=== PATIENT | male | born 1945 | race Caucasian/White ===

== ENCOUNTER → 2018-11-05 | Outpatient (CLI) | payer OTHER, SELFPAY ==
[2016-09-10 07:14] VITALS: BMI 21.7
--- NOTE | 2018-11-05 | IMM_PTH ---
PATIENT: RENÉ LYNN LOC: [facility] U#:[id number] AGE/SX: 73/M ROOM: RE11/05/[address]: Dr. Bk Rodriguez MD : 1945 BED: DIS: 11/05/2018 SPEC #: [id number] RECD: 11/09/18 13:10 STATUS: LILLY REQ #: [id number] BIA: 11/05/18 00:[address]: Bk Rodriguez DEPT: IMMUNOHISTOCHEMISTRY RECD BY: Madeline Hutton ENTERED: 11/09/18 13:11 SP TYPE: IMMUNO OTHR DR: Dr. Braeden Hu MD Tissues: A - PROSTATE RIGHT B - PROSTATE RIGHT F - PROSTATE LEFT Procedures: 34BE12 (add) P40 (add) 34BE12 (initial) PHYSICIAN & INSTITUTION [facility] [id number] SPECIMEN INFORMATION: Tissue Source: A - Right prostate apex, B - Right prostate mid, F - Left prostate base Clinical Info: Elevated PSA Specimen Number: [id number] A, B & F CPT code: 61444, 69808 x5 METHODOLOGY: Deparaffinized sections of prefer/formalin-fixed tissue or PAP/DQ stained slides are incubated with monoclonal/polyclonal antibodies/oligonucleotide probes. Localization is made via biotin free immunoperoxidase method. Appropriate controls are performed and reacted as expected. Results on target cell population are indicated in the following table: RESULTS: ANTIBODY / CLONE RESULT Block A P40 (BC28) positive 34BE12 (34BE12) positive Block B P40 (BC28) negative 34BE12 (34BE12) negative Block F P40 (BC28) negative 34BE12 (34BE12) negative These tests were developed and their performance characteristics determined by [facility]. They may not have been cleared or approved by the U.S. Food and Drug Administration. The FDA has determined that such clearance or approval is not necessary. INTERPRETATION: A. Right prostate, apex, core biopsy: Focal high-grade prostatic intraepithelial neoplasia (HGPIN). B. Right prostate, mid, core biopsy: Adenocarcinoma. F. Left prostate, base, core biopsy: Focal atypical small acinar proliferation ([place]). See comment. VANESA:austin 11/10/18 Comment: F. The focus consists of only two glands.
--- NOTE | 2018-11-05 08:00 | PROSBIL_PTH ---
PATIENT: RENÉ LYNN LOC: [facility] U#:[id number] AGE/SX: 73/M ROOM: RE11/05/[address]: Dr. Bk Rodriguez MD : 1945 BED: DIS: 11/05/2018 SPEC #: [id number] RECD: 11/05/18 16:45 STATUS: LILLY VIDAL #: [id number] BIA: 11/05/18 08:[address]: Bk Rodriguez DEPT: SURGICAL PATHOLOGY RECD BY: Ray Kneney ENTERED: 11/06/18 08:41 SP TYPE: PROST BX DK DR: Dr. Braeden Hu MD Tissues: A - PROSTATE RIGHT B - PROSTATE RIGHT C - PROSTATE RIGHT D - PROSTATE LEFT E - PROSTATE LEFT F - PROSTATE LEFT Procedures: PROSTATE BX HEADER OPERATION: Prostate biopsy PRE-OP DIAGNOSIS: Elevated PSA TISSUE SUBMITTED: A - Right apex, B - Right mid, C - Right base, D - Left apex, E - Left mid, F - Left base MICROSCOPIC DIAGNOSIS A. Right prostate, apex, core biopsy: Focal high-grade prostatic intraepithelial neoplasia (HGPIN). See comment B. Right prostate, mid, core biopsy: Prostatic adenocarcinoma: [place] grade: 3+3=6 Number of cores involved: 1/2 Proportion of tissue involved: <5% Perineural invasion: Present. Greatest tumor length: <0.1 cm Focal high-grade prostatic intraepithelial neoplasia (HGPIN). Focal atrophy. See comment. C. Right prostate, base, core biopsy: Focal high-grade prostatic intraepithelial neoplasia (HGPIN). D. Left prostate, apex, core biopsy: Prostatic adenocarcinoma: [place] grade: 4+3=7 Number of cores involved: 1/1 Proportion of tissue involved: ~75% Perineural invasion: Present. Greatest tumor length: 0.5 cm E. Left prostate, mid, core biopsy: Prostatic adenocarcinoma: [place] grade: 5+4=9 Number of cores involved: 2/2 Proportion of tissue involved: ~80% Perineural invasion: Present. Greatest tumor length: 1 cm See comment. F. Left prostate, base, core biopsy: Focal high-grade prostatic intraepithelial neoplasia (HGPIN). Focal atypical small acinar proliferation. See comment. SJ:rg 11/09/18 COMMENT A, B & F - Immunohistochemistry ([id number]) supports the above diagnosis. E. Adenocarcinoma also shows focal tertiary pattern 3. F. Atypical focus consists of only two glands. MICROSCOPIC DESCRIPTION Slides are reviewed. GROSS DESCRIPTION A - Received is one container designated prostate, right apex. The specimen consists of one elongated fragment of light farley-white soft tissue measuring 1.2 cm in length and 0.1 cm in diameter. The specimen is totally submitted in one cassette. B - Received is one container designated prostate, right mid. The specimen consists of two elongated fragments of light farley-white soft tissue measuring 1 and 1.3 cm in length and 0.1 cm in diameter. The specimen is totally submitted in one cassette. C - Received is one container designated prostate, right base. The specimen consists of two elongated fragments of light farley-white soft tissue measuring 1 and 1.5 cm in length and 0.1 cm in diameter. The specimen is totally submitted in one cassette. D - Received is one container designated prostate, left apex. The specimen consists of one elongated fragment of light farley-white soft tissue measuring 0.7 cm in length and 0.1 cm in diameter. The specimen is totally submitted in one cassette. E - Received is one container designated prostate, left mid. The specimen consists of two elongated fragments of light farley-white soft tissue measuring 0.7 and 1.2 cm in length and 0.1 cm in diameter. The specimen is totally submitted in one cassette. F - Received is one container designated prostate, left base. The specimen consists of four elongated fragments of light farley-white soft tissue measuring 0.3 to 0.4 cm in length and 0.1 cm in diameter. The specimen is totally submitted in one cassette. / SJ:rg 11/06/18 TC:0 [facility]: [id number]
== END | disposition home or self-care (01) ==
PROVIDERS: Family Provider Internal Medicine; PCP Internal Medicine; Referring Provider Urology; Visit Provider Urology
DX: R97.20 Elevated prostate specific antigen [PSA] (principal)
CPT/HCPCS: 88305; 88341; 88342; G0416

== ENCOUNTER → 2018-11-20 10:19 | Outpatient (CLI) | payer OTHER, SELFPAY ==
--- NOTE | 2018-11-20 10:25 | NM_ITS ---
CLINICAL: 73-year-old male with reported history of presumed carcinoma of the prostate. WHOLE BODY 99m Tc MDP RADIONUCLIDE BONE SCINTIGRAPHY COMPARISON: None available FINDINGS: Following the intravenous administration of 27.0 mCi of 99m Tc MDP, whole body bone images reveal: 1. Increased radiopharmaceutical concentration is defined in the left wrist, the acromioclavicular compartments of both shoulders, the medial femoral compartment of the left knee. 2. The remaining skeletal structures are scintigraphically unremarkable with normal-appearing renal images and urinary bladder activity identified. NM/Bone Scan Whole Body IMPRESSION: 1. The increased radiopharmaceutical concentration identified in the left wrist, bilateral shoulders and left knee is commensurate with degenerative arthritis. 2. There is no definitive scintigraphic evidence of diffuse axial skeletal metastatic disease on the current examination. Electronically Signed: Benny Lake DO at 13:49 EDT Tel , Service support ,
== END ==
PROVIDERS: Family Provider Internal Medicine; PCP Internal Medicine; Referring Provider Urology; Visit Provider Urology
DX: C61 Malignant neoplasm of prostate (principal)
CPT/HCPCS: 78306

== ENCOUNTER → 2018-11-25 | Outpatient (CLI) | payer OTHER, SELFPAY ==
--- NOTE | 2018-11-25 07:58 | CT_ITS ---
STUDY: CT ABDOMEN AND PELVIS WITH CONTRAST REASON FOR EXAM: Male, 73 years old. Newly diagnosed prostate cancer. Elevated PSA levels. History of prior left inguinal hernia repair. RADIATION DOSAGE (If Supplied By Facility): CTDIvol = ( 11.71 ) mGy, DLP = ( 494.71 ) mGycm TECHNIQUE: Transaxial images were obtained from the dome of the diaphragm to the symphysis pubis without oral contrast. 100mL IV Isovue 300 was administered. Sagittal and coronal images were reconstructed. Individualized dose optimization techniques were used for this CT. COMPARISON: None. FINDINGS: Mild increased linear markings at the lung bases suggestive of mild linear atelectasis and/or scarring. Coronary artery calcification. Normal liver. Normal gallbladder and extrahepatic biliary system. Normal spleen. Normal pancreas. Normal bilateral adrenal glands. Normal right kidney. Normal left kidney. Normal visualized stomach. Normal small intestine. Normal colon. The appendix is visualized and appears normal. There is diffuse atherosclerotic calcification of the abdominal aorta, without a demonstrated aneurysm. Normal inferior vena cava. Normal retroperitoneum. Normal urinary bladder. There is enlargement of the prostate gland. It measures 4.9 cm x 4.4 cm. Small bilateral benign appearing inguinal lymph nodes. There is a small umbilical hernia containing fat. There are mild degenerative changes of the visualized lumbar spine. CT/Abdomen/Pelvis WITH Contrast IMPRESSION: Prostatic enlargement. Electronically Signed: Sukhjinder Lassiter, at 14:16 EDT , Service support ,
[2018-11-25 08:10] LABS: CREATININE FINGERSTICK 0.8 mg/dL (0.70-1.30); EGFR FINGERSTICK > 60.0000 mL/min (>60)
== END | disposition home or self-care (01) ==
PROVIDERS: Family Provider Internal Medicine; PCP Internal Medicine; Referring Provider Urology; Visit Provider Urology
DX: C61 Malignant neoplasm of prostate (principal)
CPT/HCPCS: 74177; Q9967

== ENCOUNTER 2019-02-18 22:49 | Emergency (ER) | payer OTHER, SELFPAY ==
[2019-02-18 22:50] VITALS: BP 140/95; PULSE 99; RESP 16; TEMP 36.8; O2SAT 98; BMI 20.8
--- NOTE | 2019-02-18 23:09 | EKG12_ITS ---
Test Reason : COMPLAINT Blood Pressure : / mmHG Vent. Rate : 082 BPM Atrial Rate : 082 BPM P-R Int : 140 ms QRS Dur : 084 ms QT Int : 408 ms P-R-T Axes : 065 -26 049 degrees QTc Int : 476 ms Normal sinus rhythm Normal ECG Confirmed by COLBY SMALL ([id number]), commissioning editor TUYET MAGANA ([id number]) on 02/22/2019 1:18:47 PM Referred By: YESSI Confirmed By:COLBY SMALL
--- NOTE | 2019-02-18 23:12 | ED.VIS.CHEST ---
History of Present Illness Chief Complaint: Complaint Detail of Chief Complaint: bladder spasms and chest pain Informant: Patient Onset: Hours - 5-6 Activity at onset: Rest - gradual in onset Timing: Continuous Quality: Pain Location: Left Chest Current Severity: Mild Maximum Severity: Mild Worsened By: Exertion, Breathing. Not Worsened By: Movement of Arm, Movement of Torso, Eating, Palpation Relieved By: Rest - and breathing easily Associated Symptoms: Negative for: Nausea, Vomiting, Diaphoresis, Dyspnea, Cough, Lightheadedness, Palpitations Narrative: Patient had a robotic radical prostatectomy in [facility] yesterday, he was discharged today and presents here for several reasons. He states that he did not feel he got good instructions on how to change the Rodriguez catheter bag back and forth to a leg bag, he is having bladder spasms and did not think he received a prescription for Ditropan which he received in the hospital and was helping for that, and he is having chest discomfort for the past 5 or 6 hours that has been constant, pleuritic, left-sided without any other associated symptoms or radiation. He received 5 prescriptions that we went over, 1 of them is oxybutynin XL which is the drug name for Ditropan, and he did not realize he had that. In addition he is on Lovenox 40 mg every 24 hours which appears to be prophylactic dosing, he does not remember if he received that in the hospital and not recently. He states he has some abdominal soreness but it is not bad. He has no known history of coronary disease or DVT/PE, he has had no recent leg pain or swelling. He denies any presyncopal or syncopal episodes. He has not called any of his doctors about any of these symptoms yet. CVD Risk Factors: Hypercholesterolemia. Negative for: Hypertension, Diabetes, Family History 1' </=55, Smoking - Past Medical History (1) Depression Status: Chronic (2) Prostate cancer Status: Chronic (3) Hyperlipidemia Status: Chronic Past Medical History - Allergies and Home Meds Allergies/Adverse Reactions: Allergies No Known Allergies Allergy (Verified 02/18/19 22:53) Primary Care Physician: Braeden Hu MD [Primary Care Provider] - Surgical History: - - radical prostatectomy 02/17/19 Lives: With Family Smoking Status: Never smoker Drugs: None Review of Systems General: Denies: Chills, Fever, Sweats Eyes: Denies: Visual changes - bilaterally, Diplopia ENT: Denies: Rhinorrhea, Sore throat Cardiovascular: Reports: Chest pain. Denies: Palpitations, Heart racing Respiratory: Denies: Dyspnea, Cough, Dyspnea on exertion Gastrointestinal: Reports: Abdominal pain - postop soreness. Denies: Nausea, Vomiting, Diarrhea, Melena, Hematochezia Genitourinary: Reports: Hematuria, - - feels like needs to urinate; rodriguez catheter in place since yesterday, - - perineal pain bladder spasms. Denies: Frequency Musculoskeletal: Reports: Back pain - low back, chronic, mild, unchanged. Denies: Neck pain, Swelling, Extremity Pain Skin: Denies: Rash, Wounds Neurological: Denies: Headache, Weakness, Numbness Hematologic: Reports: Easy bruising, Easy bleeding - on Lovenox Allergy: Denies: Uticaria, Swelling of the mouth, Swelling of the tongue Physical Exam Vital Signs/Narrative: Vital Signs Temp Pulse Resp BP Pulse Ox 02/18/19 22:50 98.3 F 99 16 140/95 H 98 Inital Vital Signs reviewed: Yes General: Well nourished, Well developed, No Acute Distress - well-appearing Head: Normocephalic, Atraumatic Eyes: Perrl, EOMI ENT: Moist mucous membranes, No rhinorrhea Neck: Supple, Nontender Cardiovascular: Regular rate, Regular rhythm, No murmurs, Normal S1, Normal S2. Negative for: Tachycardia - no splinting on deep inspiration Respiratory: No distress, CTA bilaterally, Chest nontender Abdomen: Soft, Nontender, Nondistended, Normal bowel sounds, Tender - mild at surgical sites, all of which appear benign w/ expected postoperative ecchymosis, mild oozing of blood from left mid-abd wound, no dehiscence / purulent discharge / signs of infection. : - - hematuria present w/o clots in leg bag; rodriguez in place Back: Nontender, Normal Inspection Extremities: Nontender, No edema. Negative for: Calf Tenderness Skin: Normal color, No rash, - - postoperative ecchymosis abd surgical incisions Neurological: Alert, Oriented x3, Cranial nerves II-XII grossly intact, Normal Strength, Normal Sensation, Normal Gait Psychological: Normal affect, Normal Mood Diagnostic/Tx/Re-eval CTA PE Study: No Evidence of PE Impressions Chest X-Ray 02/18/19 23:15 IMPRESSION: No acute cardiopulmonary disease or major interval change Electronically Signed: Marcus Davey DO at 23:32 EDT Tel [phone], Service support , Chest CTA 02/19/19 23:42 IMPRESSION: 1. No PE or thoracic aortic dissection. 2. Bibasilar mild subsegmental atelectasis and lingular segment minor scarring or atelectasis. 3. Pneumoperitoneum, more so on the right and bilateral lower chest wall mild subcutaneous emphysema but no pneumothorax. By history, radical prostatectomy performed yesterday. Individualized dose optimization techniques were used for this CT. at 0113 Reported and signed by: Julio Segundo MD Electronically Signed: Julio Segundo, at 1:11 EDT Tel , Service support , 02/18/19 23:15 Chest 1 View (Portable) [RAD] Stat 02/19/19 23:42 CTA Chest W/WO Contrast [CT] Stat Laboratory Results 02/18/19 02/18/19 23:24 23:24 WBC 8.2 RBC 3.36 L Hgb 11.2 L Hct 33.1 L MCV 98.5 H MCH 33.3 H MCHC 33.8 RDW Std Deviation 45.1 H RDW Coeff of Lucian 12.5 Plt Count 170 MPV 10.8 Immature Gran % (Auto) 0.400 Neut % (Auto) 82.4 H Lymph % (Auto) 8.9 L Kemper % (Auto) 6.8 Eos % (Auto) 1.1 Baso % (Auto) 0.4 Absolute Neuts (auto) 6.8 Absolute Lymphs (auto) 0.73 L Nucleated RBC % 0 Sodium 134 L Potassium 4.1 Chloride 101 Carbon Dioxide 26.0 Anion Gap 7 BUN 20 H Creatinine 1.27 Estim Creat Clear Calc 46.21 Est GFR (MDRD) Af Amer 72 Est GFR (MDRD) Non-Af 59 L BUN/Creatinine Ratio 15.7 Glucose 132 H Calcium 9.0 Troponin I < 0.015 - Rhythm Strip Rhythm Strip: Sinus Rhythm Rate: 82 Ectopy: None - EKG Initial EKG Interpretation: Sinus Rhythm, No Acute Injury Pattern - normal axis, normal EKG Prior: Unchanged - Medical Decision Making Work-up with normal EKG and negative troponin, given his symptoms recent surgery even though he is on prophylactic Lovenox it was thought best to perform CT angiography which he was amenable to, in order to rule out pulmonary embolus. This was negative, it showed left-sided atelectasis which is likely causing his pain. He has an incentive spirometer that the [facility] gave him. He admits that the instructions were to use it every hour multiple times, and admits that since being home he has not used it yet. He was advised to do so is that we will likely treat his atelectasis and probably help make his pain resolved. We taught him how to use the catheter and switch the bags out. We gave him an O and P suppository for bladder spasms which helped, he indeed has a filled prescription for Ditropan XL, and we feel that he is stable for discharge home. Of note, he was having gross hematuria, at one point the flow was coming out around the catheter, the nurse went to flush it but that it was flowing through it fine this was probably a bladder spasm, and now his hematuria is resolved. He is scheduled to follow-up in a few days with urology. ED Disposition - Plan for ED Patient: Disposition: Home or Assisted Living Diagnosis: Pleuritic chest pain, Atelectasis of left lung, Bladder spasms Instructions: Atelectasis, Rodriguez Catheter, Care Referrals: Braeden Hu MD [Primary Care Provider] - urologist, your [Other] - Keep Mian appointment Additional Instructions: Take your prescriptions per [facility] as prescribed. Use your incentive spirometer 10 times per hour while awake as directed. This should help your chest discomfort.
--- NOTE | 2019-02-18 23:15 | RAD_ITS ---
STUDY: X-RAY CHEST REASON FOR EXAM: Male, 74 years old. History of radical prostatectomy. Now with bladder spasm TECHNIQUE: Single AP portable view of the chest. COMPARISON: August 01, 2016. FINDINGS: The lungs are clear and expanded. There is no demonstrated pleural abnormality. Normal size heart. Normal mediastinum and sara. Normal visualized pulmonary arteries. Normal visualized aortic arch and descending thoracic aorta. Normal visualized thoracic spine. Normal visualized ribs, clavicles, and shoulders. There is no demonstrated abnormality of the visualized soft tissue structures of the upper abdomen. RAD/Chest 1 View (Portable) IMPRESSION: No acute cardiopulmonary disease or major interval change Electronically Signed: Marcus Davey DO at 23:32 EDT Tel [phone], Service support ,
[2019-02-18 23:32] LABS: Absolute Lymphocyte Count 0.73 X10^3/uL (0.83-4.51); Absolute Neutrophil Count 6.8 X10^3/uL (2.0-7.7); Basophil# 0.03 X10^3/uL; Basophil% 0.4 % (0-1); Eosinophil# 0.09 X10^3/uL; Eosinophils% 1.1 % (0-5); Hematocrit 33.1 % (40-54); Hemoglobin 11.2 g/dL (13.0-16.5); Lymphocyte # 0.73 X10^3/ul (4.0); Lymphocyte % 8.9 % (19-41); Mean Corp Hgb Conc 33.8 g/dL (32-36); Mean Corpuscular Hgb 33.3 pg (27.0-32.0); Mean Corpuscular Volume 98.5 fL (80-94); Mean Platelet Vol. 10.8 fl (6.2-12.0); Monocyte# 0.56 X10^3/uL; Monocyte% 6.8 % (0-10); NRBC Flagged by Analyzer 0 % (0-5); Neutrophil # 6.77 X10^3/uL (2.7-7.7); Neutrophil % 82.4 % (47-70); Platelet Count 170 K/mm3 (150-450); RBC Distribution Width CV 12.5 % (11.6-14.6); RBC Distribution Width SD 45.1 fl (35.1-43.9); Red Blood Count 3.36 M/mm3 (4.6-6.2); White Blood Count 8.2 K/mm3 (4.4-11.0)
[2019-02-18] MEDS: 0.9% Normal Saline 1,000 ML 1000 ML IV (23:32)
[2019-02-18 23:35] VITALS: BP 151/78; PULSE 91; RESP 18; O2SAT 96
[2019-02-18 23:49] LABS: Anion Gap 7 (5-15); BUN 20 mg/dL (7-18); BUN/Creat Ratio 15.7 RATIO (10-20); Chloride 101 mmol/L (98-107); Creatinine, Serum 1.27 mg/dL (0.70-1.30); EST Glomerular Filtration Rate 59 mL/min (>60); Est Glom Filt Rate - Afr Amer 72 mL/min (>60); Estimated Creatinine Clearance 46.21 ml/min; Glucose 132 mg/dL (74-106); Potassium 4.1 mmol/L (3.5-5.1); Sodium Level 134 mmol/L (136-145)
[2019-02-19 01:15] VITALS: BP 138/88; PULSE 106; RESP 16; O2SAT 95
[2019-02-19 01:51] VITALS: BP 138/80; PULSE 106; RESP 16; O2SAT 94
--- NOTE | 2019-02-19 23:42 | CT_ITS ---
HISTORY: POST OP RADICAL PROSTECTOMY YESTERDAY,CHEST PAIN AND BLADDER SPASMA NOW,ELEVATED BPHX:HLD,PROSTATE CANCER EXAMINATION: CTA Chest WO/W IV Contrast TECHNIQUE: Helically acquired images were obtained of the chest following IV contrast as per pulmonary angiogram protocol with 3D reconstructions. A radiation dose optimization technique was used for this scan. IV Contrast dosage and agent: 100ML Isovue 370 COMPARISON: Portable chest 02/18/2019 FINDINGS: The main, segmental, and visualized subsegmental pulmonary arteries show normal opacification and appearance. No PE. Thoracic aorta is atherosclerotic and mildly ectatic. No focal aneurysm or thoracic aortic dissection. No pericardial effusion. Normal heart size. No lymphadenopathy seen. Posterior bibasilar mild subsegmental atelectasis. Lingular segment focal atelectasis or scarring. No pleural effusion seen. No pulmonary consolidation. Upper abdomen: Pneumoperitoneum, more so on the right. Bilateral small subcutaneous chest wall emphysema anteriorly. No pneumothorax seen. Prominent gallbladder distention. Bones: No acute osseous abnormality. No metastatic bone disease seen. CT/CTA Chest W/WO Contrast IMPRESSION: 1. No PE or thoracic aortic dissection. 2. Bibasilar mild subsegmental atelectasis and lingular segment minor scarring or atelectasis. 3. Pneumoperitoneum, more so on the right and bilateral lower chest wall mild subcutaneous emphysema but no pneumothorax. By history, radical prostatectomy performed yesterday. Individualized dose optimization techniques were used for this CT. at 0113 Reported and signed by: Julio Segundo MD Electronically Signed: Julio Segundo, at 1:11 EDT Tel , Service support ,
== END 2019-02-19 01:54 | disposition home or self-care (01) ==
PROVIDERS: Emergency Provider Emergency Medicine; Family Provider Internal Medicine; PCP Internal Medicine
DX: R09.1 Pleurisy (principal); J98.11 Atelectasis; N32.89 Other specified disorders of bladder; R31.9 Hematuria, unspecified; F32.9 Major depressive disorder, single episode, unspecified; E78.00 Pure hypercholesterolemia, unspecified; M54.5 Low back pain; G89.29 Other chronic pain; Z96.0 Presence of urogenital implants; Z85.46 Personal history of malignant neoplasm of prostate; Z90.79 Acquired absence of other genital organ(s); Z79.01 Long term (current) use of anticoagulants; Z79.899 Other long term (current) drug therapy
CPT/HCPCS: 71045; 71275; 80048; 84484; 85025; 93005; 96360; 99284; J7030; Q9967; A4216

== ENCOUNTER 2019-02-21 02:52 | Emergency (ER) | payer OTHER, SELFPAY ==
[2019-02-21 02:54] VITALS: BP 154/100; PULSE 100; RESP 15; TEMP 37.4; O2SAT 98; BMI 21.7
--- NOTE | 2019-02-21 03:04 | US_ITS ---
We are attempting to reach an attending provider to discuss findings. An addendum with communication details will be sent when the communication is complete. HISTORY: Testicular swelling. [address] scan of the abdomen and pelvis of November 25, 2018 did not go below the perineum. Findings: Scrotal skin thickening is moderate with hyperreninemia and edema. The right testis is heterogeneous. There is a small right hydrocele. The right testis measures 2.2 x 2.9 x 2 cm. Color and pulse wave Doppler imaging demonstrate arterial flow to the right testicular parenchyma. The right epididymal head is slightly hyperemic with an epididymal cyst. The right epididymal head measures 13 x 11 mm. Color Doppler imaging demonstrates flow to the right epididymal head parenchyma. With all solid there was not significant amounts of different flow within the right testis or the surrounding soft tissues. Left hemiscrotum is equally thick. The left testis measures 2.4 x 3 x 1.8 cm. Left testicular parenchymal echotexture is more homogeneous than the right. Color Doppler imaging suggests flow within the periphery of the left testis. Pulse-wave Doppler imaging suggests probable flow within the parenchyma, but it is better within the periphery. The left epididymal head measures 15 x 10 mm. Flow is present within the left epididymal head. US/Testicular with Arterial Flow IMPRESSION: Asymmetric appearance to blood flow within the testes. Blood flow is better demonstrated within the right testicular parenchyma. On the left it appears more that this blood flow within the left testis is within the periphery. There is one image that suggests central parenchymal flow to the left testis, the third to last image, image 64 of 67. This makes the study somewhat indeterminate, but suggestive of possible left testicular torsion. There is a large amount of swelling within the scrotum, but without identified abscess or gas. at 0505 Reported and signed by: Robert Garcia MD Electronically Signed: Robert Garcia MD at 5:04 EDT Tel , Service support ,
--- NOTE | 2019-02-21 03:16 | ED.VISSUMM ---
- ER Visit Summary Date of Service: 02/21/19 Chief Complaint: Scrotal discoloration History of Present Illness: The patient is a 74 M who is here because his scrotum is purple. He had a radical robotic prostatectomy 3 days ago at [facility]. He has had some hematuria in his catheter since then but no other issues regarding the surgery. He then noticed yesterday that his scrotum was turning purple. He denies having any pain. It is mildly swollen. He denies any trauma. He has hematuria in his catheter and he has noted more clots but the color has not changed. He is still doing Lovenox injections are 24 hours. Physical Examination: Vital signs reviewed. Heart is regular rate and rhythm. Lungs clear to auscultation. Abdomen soft nontender. Scrotal exam reveals that the entire scrotum is ecchymotic and purplish in color. There is no tenderness to palpation. The catheter is in place and draining blood-tinged urine. His neurologic exam is normal. Test Results: Hemoglobin 9.2 which is down from 11.2 approximately 50 hours ago. Glucose 112, BUN 19. Urinalysis has blood. Ultrasound of the scrotum and testicle reveals scrotal swelling. There is concern for decreased flow to the parenchyma of the left testicle. The radiologist remarked that he see some flow to the periphery of the testicle but not to the central portion. Emergency Department Course and Treatment: Patient denies any pain so my concern for a torsion is very low but still obviously something that needs to be evaluated by a urologist. He has lost 2 g of hemoglobin in approximately 48 hours which is also concerning. He is still producing blood clots 5 days out from surgery. I discussed this with the [facility] urologist workers compensation paralegal. He will accept the patient in transfer. Patient elects to go by private car, which I feel is okay because he is hemodynamically stable. Treatment Plan: [] Disposition: Transfer Impression: Hematuria status post prostatectomy Anemia Scrotal swelling This note was generated with [employer] dictation software. It may contain incorrect words, spelling, and punctuation that were not noted in review of the chart prior to signing ED Disposition - Plan for ED Patient: Referrals: Braeden Hu MD [Primary Care Provider] -
[2019-02-21 03:24] LABS: Bacteria 0 SEEN /hpf (None Seen); Mucous, Urine 0 SEEN /hpf (<or=2+); Squamous Epithelial Cells - UA 0 SEEN /hpf (0-5)
[2019-02-21 03:28] LABS: Color, Urine Red (Yellow); Glucose, Dipstick Normal (Normal); Ketone-Dipstick 15 mg/dl (Negative); Leukocyte Esterase-Dipstick 25 /ul (Negative); Nitrite-Dipstick Negative (Negative); Occult Blood-Urine 250 /ul (Negative); Protein-Dipstick 500 mg/dl (Negative); Specific Gravity, Urine 1.015 (1.002-1.030); Urine Bilirubin Dipstick Negative (Negative); Urine Clarity Cloudy (Clear); Urine Urobilinogen Normal (Normal); Urine pH 6.5 (5.0 - 8.0)
[2019-02-21 03:34] LABS: Anion Gap 8 (5-15); BUN 19 mg/dL (7-18); BUN/Creat Ratio 18.8 RATIO (10-20); Calcium,Total 8.4 mg/dL (8.5-10.1); Chloride 107 mmol/L (98-107); Creatinine, Serum 1.01 mg/dL (0.70-1.30); EST Glomerular Filtration Rate 77 mL/min (>60); Est Glom Filt Rate - Afr Amer 93 mL/min (>60); Glucose 112 mg/dL (74-106); Potassium 3.7 mmol/L (3.5-5.1); Sodium Level 141 mmol/L (136-145)
[2019-02-21 03:39] LABS: Absolute Lymphocyte Count 0.88 X10^3/uL (0.83-4.51); Absolute Neutrophil Count 3.4 X10^3/uL (2.0-7.7); Basophil# 0.04 X10^3/uL; Basophil% 0.7 % (0-1); Eosinophil# 0.49 X10^3/uL; Hematocrit 26.9 % (40-54); Hemoglobin 9.2 g/dL (13.0-16.5); Lymphocyte # 0.88 X10^3/ul (4.0); Lymphocyte % 16.1 % (19-41); Mean Corp Hgb Conc 34.2 g/dL (32-36); Mean Corpuscular Hgb 33.3 pg (27.0-32.0); Mean Corpuscular Volume 97.5 fL (80-94); Mean Platelet Vol. 11.6 fl (6.2-12.0); Monocyte# 0.59 X10^3/uL; Monocyte% 10.8 % (0-10); NRBC Flagged by Analyzer 0 % (0-5); Neutrophil # 3.44 X10^3/uL (2.7-7.7); Platelet Count 155 K/mm3 (150-450); RBC Distribution Width CV 12.7 % (11.6-14.6); RBC Distribution Width SD 45.1 fl (35.1-43.9); Red Blood Count 2.76 M/mm3 (4.6-6.2); White Blood Count 5.5 K/mm3 (4.4-11.0)
[2019-02-21 03:40] LABS: White Blood Cells 5-10 SEEN /hpf (0-5)
[2019-02-21 03:41] LABS: Red Blood Cells-Urine > 100 SEEN /hpf (0-5)
[2019-02-21 06:30] VITALS: BP 145/78; PULSE 62; RESP 16; TEMP 36.8; O2SAT 98
== END 2019-02-21 06:30 | disposition short-term general hospital (02) ==
LOC: ED 03:31
PROVIDERS: Emergency Provider Emergency Medicine; Family Provider Internal Medicine; PCP Internal Medicine
DX: R31.9 Hematuria, unspecified (principal); Z90.79 Acquired absence of other genital organ(s); D64.9 Anemia, unspecified; N50.89 Other specified disorders of the male genital organs; Z96.0 Presence of urogenital implants; Z79.01 Long term (current) use of anticoagulants; Z79.899 Other long term (current) drug therapy
CPT/HCPCS: 76870; 80048; 81001; 85025; 93976; 99285; A4216

== ENCOUNTER 2024-02-02 19:04 | Emergency (ER) | payer MEDICARE, OTHER, SELFPAY ==
[2024-02-02 19:04] VITALS: BP 166/93; PULSE 74; RESP 17; TEMP 36.6; O2SAT 100; BMI 21.4
--- NOTE | 2024-02-02 20:02 | CT_ITS ---
INDICATION: Trauma, fall with facial injury EXAMINATION: CT BRAIN - CT Head or Brain W/O Contrast Injection TECHNIQUE: Multiple axial images were obtained of the head without intravenous contrast. A radiation dose optimization technique was used for this scan. IV Contrast dosage and agent: None. COMPARISON: None. FINDINGS: BRAIN PARENCHYMA: No intra- or extra-axial hemorrhage. No evidence of acute infarct. No intracranial mass or mass effect. Volume loss with low attenuation of the periventricular white matter typical of chronic small vessel disease. Posterior fossa structures are unremarkable. CSF SPACES: Appropriate for age. No hydrocephalus. Basal cisterns are patent. CALVARIUM, SKULL BASE, PARANASAL SINUSES AND MASTOID AIR CELLS: Minimal mucoperiosteal thickening. No discrete lytic or blastic abnormalities. ORBITS: Both globes, extraocular muscles, optic nerves and retrobulbar fat appear unremarkable. CT/Brain/Head without Contrast IMPRESSION: Volume loss with changes of chronic small vessel disease. No acute intracranial findings. Electronically Signed: Reagan Smith MD at 21:24 EDT ,
--- NOTE | 2024-02-02 20:03 | EX.ED.GENINJ ---
HPI History of Present Illness Chief Complaint: Head Injury Informant: patient Onset/Context/Timing Onset: Today Narrative Narrative: Patient presents after mechanical fall in his yard. He was doing yard work holding a 10 foot long pole trimming branches. He did not realize he was stepping on an incline and fell striking his face on the ground. His glasses broke. He has abrasions to his forehead as well as the nasal bridge. He did have blood from the left nare. He is not currently on anticoagulant. [facility] Medical History (Updated 02/02/24 @ 21:[address] Komal Francois MD) Depression Prostate cancer Hyperlipidemia Home Medications ?Medication ?Instructions ?Recorded ?Last Taken ?Type atorvastatin 20 mg tablet 20 mg PO QHS 08/01/16 Unknown History fluoxetine 20 mg capsule 40 mg PO DAILY 08/01/16 Unknown History fish oil-dha-epa 1,200 mg-144 1 ea PO DAILY 09/04/16 Unknown History mg-216 mg capsule lutein 20 mg capsule 20 mg PO DAILY 09/04/16 Unknown History multivitamin (Daily Multiple 1 ea PO DAILY 09/04/16 Unknown History tablet) ciprofloxacin HCl 500 mg tablet 500 mg PO BID 02/18/19 Unknown History docusate sodium 100 mg capsule 100 mg PO BID 02/18/19 Unknown History enoxaparin 40 mg/0.4 mL 40 mg SQ DAILY 02/18/19 Unknown History subcutaneous syringe oxybutynin chloride 5 mg tablet 10 mg PO DAILY 02/18/19 Unknown History oxycodone-acetaminophen 5 mg-325 1 ea PO Q6H PRN PRN Pain 02/18/19 Unknown History mg tablet Allergy/AdvReac Type Severity Reaction Status Date / Time No Known Allergies Allergy Verified 02/02/24 19:04 Social History Smoking Status: Never smoker ROS ROS ED Constitutional Constitutional ED: Denies chills or fever(s) Eyes Eyes: Denies change in vision or discharge from eye(s) ENT ENT ED: Reports other Details: Blood from left nare ; Denies discharge from eye(s) or sore throat Cardiovascular Cardiovascular: Denies chest pain Respiratory/Chest Respiratory/Chest: Denies cough or dyspnea Gastrointestinal Gastrointestinal: Denies abdominal pain, nausea or vomiting Musculoskeletal Musculoskeletal: Denies back pain or extremity pain Integumentary Reports Abrasions; Denies rash Neurologic Neurologic: Denies headache(s) or weakness Psychiatric Psychiatric: Denies anxiety or depression Allergic/Immunologic Allergic/Immunologic ED: Denies lip swelling or urticaria EXAM Physical Exam Const Vital Signs: 02/02/24 19:04 02/02/24 20:55 Temperature 98 F Temperature Source Temporal Pulse Rate 74 Respiratory Rate 17 Respiratory Effort Normal Respiratory Depth Normal Respiratory Pattern Normal Blood Pressure 166/93 H Blood Pressure Mean 117 Pulse Ox 100 Oxygen Delivery Method Room Air Room Air Positive well nourished and well developed General Appearance ED: well developed HEENT HEENT Narrative: Abrasions noted on the forehead. Abrasions and ecchymosis with edema over the nasal bridge. Mild dried blood noted in the left nare. No septal wall hematoma. Teeth are stable. Eyes EOMs intact bilaterally Chest Wall inspection of chest normal and palpation of chest normal Resp normal respiratory effort and clear to auscultation bilaterally Cardio regular rhythm Rate: regular rate GI non-tender Palpation: soft Back/Spine normal to inspection Extremity normal to inspection Neuro oriented x3 and moves all extremities Sensorium / Orientation: alert Motor Exam: strength 5/5 throughout Skin Skin Narrative: Facial abrasions as noted above. MDM MDM MDM Narrative Medical decision making narrative: CT imaging of the brain will be obtained to evaluate for any acute intracranial injury. Radiography Diagnostic Testing: Clinical Impression(s) from Imaging Studies Brain CT 02/02/24 20:02 IMPRESSION: Volume loss with changes of chronic small vessel disease. No acute intracranial findings. Electronically Signed: Reagan Smith MD at 21:24 EDT Reading Location ID and State: [facility] / [place] Tel , Service support , Treatment and Re-Evaluation Narrative: CT scan of the head reveals a volume loss with changes of chronic small vessel disease. No acute intracranial findings. There was no mention 1 way or the other about whether a nasal bone fracture was appreciated. When I reviewed the images it does appear there is a small step-off with a subtle fracture line on the sagittal images. This was discussed with the patient. He will continue supportive care. He was given ENT follow-up if he has difficulty breathing or feels that there is a cosmetic change. He is comfortable with the plan. Discharge Plan Triage Chief Complaint: Head Injury ED Provider: Komal Francois Dx/Rx/DC Orders Clinical Impression: Fall, Abrasion of face, Closed fracture nasal bone Instructions: ED Facial Contusion, ED Nose Fracture, with X-Ray, ED Head Injury (Adult) Prescriptions: No Action atorvastatin 20 MG tablet 20 mg PO QHS fluoxetine 20 MG capsule 40 mg PO DAILY multivitamin [Daily Multiple] 1 EACH tablet 1 ea PO DAILY lutein 20 MG capsule 20 mg PO DAILY fish oil-dha-epa 1 EACH capsule 1 ea PO DAILY ciprofloxacin HCl 500 MG tablet 500 mg PO BID Patient Comments: take 1 tablet by mouth twice a day START DAY BEFORE PROCEDURE oxycodone-acetaminophen 1 EACH tablet 1 ea PO Q6H PRN PRN (Reason: Pain) docusate sodium 100 MG capsule 100 mg PO BID oxybutynin chloride 5 MG tablet 10 mg PO DAILY enoxaparin 40 MG/0.4 ML syringe 40 mg SQ DAILY Primary Care Provider: Braeden Hu Referrals: Gibson Black MD [Med Staff - Active Staff] - As Needed Braeden Hu MD [Primary Care Provider] - Print Language: [place] Disposition Disposition: Home, Self Care Discharge Date/Time: 02/02/24 21:40
== END 2024-02-02 21:40 | disposition home or self-care (01) ==
PROVIDERS: Emergency Provider Emergency Medicine; PCP Internal Medicine; Visit Provider Emergency Medicine
DX: S02.2XXA Fracture of nasal bones, initial encounter for closed fracture (principal); S00.81XA Abrasion of other part of head, initial encounter; E78.5 Hyperlipidemia, unspecified; Y93.H2 Activity, gardening and landscaping; W01.0XXA Fall on same level from slipping, tripping and stumbling without subsequent striking against object, initial encounter
CPT/HCPCS: 70450; 99282